=== PATIENT | male | born 1985 | race Caucasian/White ===

== ENCOUNTER 2017-08-20 13:28 | Inpatient (IN) | payer MEDICAID, OTHER ==
[~2017-08-20] VITALS: Ht 177.8 cm; Wt 77.8 kg
[~2017-08-20 13:28] MED LIST: LAMO100 PO; PALI3 PO
[2017-08-20 13:56] LABS: BASOPHILS # (AUTO) 0.02 K/uL (0.00-0.20); BASOPHILS % (AUTO) 0.4 % (0.0-2.0); EOSINOPHILS # (AUTO) 0.06 K/uL (0.00-0.70); EOSINOPHILS % (AUTO) 1.01 % (1.0-6.0); HEMOGLOBIN 15.6 g/dL (13.5-17.5); LYMPHOCYTES # (AUTO) 1.9 K/uL (1.0-4.8); LYMPHOCYTES % (AUTO) 31.4 % (22.0-44.0); MEAN CORPUSCULAR HEMOGLOBIN 32.8 pg (26.0-34.0); MEAN CORPUSCULAR HGB CONC 33.9 G/dL (31.0-37.0); MEAN CORPUSCULAR VOLUME 97 fL (80-100); MONOCYTES # (AUTO) 0.4 K/uL (0.1-1.0); MONOCYTES % (AUTO) 6.5 % (2.0-9.0); NEUTROPHILS # (AUTO) 3.7 K/uL (1.8-7.7); NEUTROPHILS % (AUTO) 60.7 % (40.0-70.0); PLATELET COUNT (AUTO) 274 K/uL (150-450); RED BLOOD CELL COUNT(AUTO) 4.76 MIL/uL (4.50-5.90); RED CELL DISTRIBUTION WIDTH 12.8 % (11.5-14.5); WHITE BLOOD COUNT (AUTO) 6.1 K/uL (4.5-11.0)
[2017-08-20 14:14] LABS: ANION GAP 11 mmol/L (8-16); CALCIUM, TOTAL 9.4 mg/dL (8.8-10.5); CARBON DIOXIDE 26 mmol/L (22-29); CHLORIDE 100 mmol/L (98-107); CREATININE 1.19 mg/dL (0.60-1.30); GLOMERULAR FILTR. RATE CALC > 60 mL/min (>60); POTASSIUM 3.8 mmol/L (3.5-5.1); SODIUM SERUM 137 mmol/L (136-145); UREA NITROGEN, BLOOD 15 mg/dL (7-18)
[2017-08-20 14:20] LABS: ALANINE AMINOTRANSFERASE 36 U/L (12-78); ALBUMIN 4.1 g/dL (3.4-5.0); ASPARTATE AMINOTRANSFERASE 24 U/L (15-37); TOTAL PROTEIN, SERUM 7.7 g/dL (6.4-8.2)
[2017-08-20] MEDS ORDERED: ZOLPIDEM TARTRATE 10 MG TABLET PO PRN (16:15)
[2017-08-20 17:00] VITALS: BP 122/66
[2017-08-20] MEDS ORDERED: ACETAMINOPHEN 325 MG TABLET PO ONE (18:30)
[2017-08-20] MEDS ORDERED: INFLUENZA VIRUS VACCINE QVS 2017-18 (3YR+)/PF 60 MCG/0.5 ML SYRINGE IM ONE (20:30)
[2017-08-21] MEDS: LORazepam 2 MG TABLET PO PRN ×2 (06:12→18:13)
[2017-08-21] MEDS: HALOPERIDOL 5 MG TABLET PO PRN (06:13)
[2017-08-21 07:20] LABS: CHOL/HDL RATIO 2.5 (4.2-7.3)
[2017-08-21 08:30] VITALS: BP 117/68
[2017-08-21] MEDS: BACITRACIN 28.4 GM OINTMENT TP SCH ×2 (09:00→18:07)
[2017-08-21] MEDS: NICOTINE 14 MG/24 HOUR PATCH TD SCH (09:00)
[2017-08-21] MEDS ORDERED: ONDANSETRON HCL 4 MG TABLET PO PRN (09:30)
[2017-08-21] MEDS ORDERED: CloNIDine HCL 0.1 MG TABLET PO PRN (09:30)
[2017-08-21] MEDS ORDERED: PETROLATUM,WHITE 71 GM JELLY TP PRN (09:30)
[2017-08-21] MEDS ORDERED: MAGNESIUM HYDROXIDE SUSPENSION 30 ML UDCUP PO PRN (09:30)
[2017-08-21] MEDS ORDERED: ALBUTEROL SULFATE HFA 90 MCG/PUFF 8 GM INHALER IH PRN (09:30)
[2017-08-21] MEDS ORDERED: IBUPROFEN 600 MG TABLET PO PRN (09:30)
[2017-08-21] MEDS ORDERED: BACITRACIN 28.4 GM OINTMENT TP PRN (09:30)
[2017-08-21] MEDS ORDERED: MAG HYDROX/AL HYDROX/SIMETH ES 30 ML SUSPENSION UDCUP PO PRN (09:30)
[2017-08-21] MEDS ORDERED: LOPERAMIDE HCL 2 MG CAPSULE PO PRN (09:30)
[2017-08-21] MEDS ORDERED: BENZOCAINE/MENTHOL LOZENGE MM PRN (09:30)
[2017-08-21] MEDS ORDERED: ACETAMINOPHEN 325 MG TABLET PO PRN (09:30)
[2017-08-21 17:00] VITALS: BP 113/53
[2017-08-21] MEDS: DIVALPROEX SODIUM 500 MG DR TABLET PO SCH ×2 (18:45→19:07)
[2017-08-21] MEDS: RisperiDONE 3 MG TABLET PO SCH ×2 (18:45→19:06)
[2017-08-21] MEDS: LITHIUM CARBONATE 300 MG CAPSULE PO SCH ×2 (18:45→19:07)
[2017-08-22] MEDS: LORazepam 2 MG TABLET PO PRN ×4 (00:05→20:33)
[2017-08-22 00:58] VITALS: BP 120/73
[2017-08-22] MEDS: DIVALPROEX SODIUM 500 MG DR TABLET PO SCH ×2 (09:00→17:00)
[2017-08-22] MEDS: BACITRACIN 28.4 GM OINTMENT TP SCH ×2 (09:00→17:00)
[2017-08-22] MEDS: RisperiDONE 3 MG TABLET PO SCH ×2 (09:00→17:00)
[2017-08-22] MEDS: LITHIUM CARBONATE 300 MG CAPSULE PO SCH ×2 (09:00→17:00)
[2017-08-22] MEDS: NICOTINE 14 MG/24 HOUR PATCH TD SCH (09:12)
[2017-08-22] MEDS: HALOPERIDOL 5 MG TABLET PO PRN (16:15)
[2017-08-22 17:50] VITALS: BP 114/78
[2017-08-23 01:15] VITALS: BP 111/79
[2017-08-23] MEDS: LORazepam 2 MG TABLET PO PRN ×4 (01:18→23:33)
[2017-08-23 03:10] VITALS: BP 111/79
[2017-08-23 08:05] VITALS: BP 112/66
[2017-08-23] MEDS: DIVALPROEX SODIUM 500 MG DR TABLET PO SCH ×2 (09:00→16:52)
[2017-08-23] MEDS: LITHIUM CARBONATE 300 MG CAPSULE PO SCH ×2 (09:00→16:52)
[2017-08-23] MEDS: BACITRACIN 28.4 GM OINTMENT TP SCH ×2 (09:00→16:52)
[2017-08-23] MEDS: RisperiDONE 3 MG TABLET PO SCH ×2 (09:00→16:52)
[2017-08-23] MEDS: NICOTINE 14 MG/24 HOUR PATCH TD SCH (10:03)
[2017-08-23 17:00] VITALS: BP 114/68
[2017-08-24 00:30] VITALS: BP 114/76
[2017-08-24] MEDS: LORazepam 2 MG TABLET PO PRN ×2 (03:58→20:18)
[2017-08-24] MEDS ORDERED: LORazepam 2 MG/ML VIAL IM ONE ×2 (06:45→10:45)
[2017-08-24] MEDS ORDERED: DiphenhydrAMINE HCL 50 MG/ML VIAL IM ONE ×2 (06:45→10:45)
[2017-08-24] MEDS ORDERED: HALOPERIDOL LACTATE 5 MG/ML VIAL IM ONE ×2 (06:45→10:45)
[2017-08-24 08:51] VITALS: BP 113/72
[2017-08-24] MEDS: NICOTINE 14 MG/24 HOUR PATCH TD SCH (09:00)
[2017-08-24] MEDS: LITHIUM CARBONATE 300 MG CAPSULE PO SCH ×2 (09:00→16:24)
[2017-08-24] MEDS: BACITRACIN 28.4 GM OINTMENT TP SCH ×2 (09:00→16:50)
[2017-08-24] MEDS: RisperiDONE 3 MG TABLET PO SCH ×2 (09:00→16:24)
[2017-08-24] MEDS: DIVALPROEX SODIUM 500 MG DR TABLET PO SCH ×2 (09:00→16:24)
[2017-08-24 20:21] VITALS: BP 112/61
[2017-08-25] MEDS: LITHIUM CARBONATE 300 MG CAPSULE PO SCH ×2 (08:10→16:48)
[2017-08-25 08:49] VITALS: BP 113/60
[2017-08-25] MEDS: BACITRACIN 28.4 GM OINTMENT TP SCH ×2 (09:00→16:48)
[2017-08-25] MEDS: LORazepam 2 MG TABLET PO PRN ×3 (09:15→18:34)
[2017-08-25] MEDS: NICOTINE 14 MG/24 HOUR PATCH TD SCH (09:18)
[2017-08-25] MEDS: DIVALPROEX SODIUM 500 MG DR TABLET PO SCH ×2 (09:19→16:48)
[2017-08-25] MEDS: RisperiDONE 3 MG TABLET PO SCH ×2 (09:19→16:48)
[2017-08-25 16:17] LABS: GLUCOSE,POINT OF CARE 153 MG/DL (70-110)
[2017-08-25 17:00] VITALS: BP 107/67
[2017-08-25 18:32] VITALS: BP 115/69
[2017-08-26] MEDS: LORazepam 2 MG TABLET PO PRN ×3 (04:51→16:18)
[2017-08-26 04:56] VITALS: BP 116/85
[2017-08-26] MEDS: RisperiDONE 3 MG TABLET PO SCH ×2 (08:13→16:18)
[2017-08-26] MEDS: LITHIUM CARBONATE 300 MG CAPSULE PO SCH ×2 (08:13→16:18)
[2017-08-26] MEDS: DIVALPROEX SODIUM 500 MG DR TABLET PO SCH ×2 (08:13→16:18)
[2017-08-26 08:29] VITALS: BP 117/69
[2017-08-26] MEDS: BACITRACIN 28.4 GM OINTMENT TP SCH ×2 (09:00→16:17)
[2017-08-26] MEDS: NICOTINE 14 MG/24 HOUR PATCH TD SCH (09:00)
[2017-08-26 16:00] VITALS: BP 113/61
[2017-08-26] MEDS ORDERED: BENZOCAINE/MENTHOL LOZENGE [8 LOZENGES/PACKET] MM PRN (16:15)
[2017-08-27 02:38] VITALS: BP 114/74
[2017-08-27] MEDS: LORazepam 2 MG TABLET PO PRN ×3 (02:42→12:34)
[2017-08-27 08:30] VITALS: BP 120/74
[2017-08-27] MEDS: DIVALPROEX SODIUM 500 MG DR TABLET PO SCH ×2 (08:31→16:27)
[2017-08-27] MEDS: LITHIUM CARBONATE 300 MG CAPSULE PO SCH ×2 (08:31→16:28)
[2017-08-27] MEDS: RisperiDONE 3 MG TABLET PO SCH ×2 (08:31→16:28)
[2017-08-27] MEDS: NICOTINE 14 MG/24 HOUR PATCH TD SCH (08:40)
[2017-08-27] MEDS: BACITRACIN 28.4 GM OINTMENT TP SCH ×2 (09:00→16:28)
[2017-08-27 16:15] VITALS: BP 98/61
[2017-08-27 16:47] LABS: GLUCOSE,POINT OF CARE 95 MG/DL (70-110)
[2017-08-28] MEDS: LORazepam 2 MG TABLET PO PRN ×3 (05:16→15:47)
[2017-08-28] MEDS: RisperiDONE 3 MG TABLET PO SCH ×2 (08:11→16:37)
[2017-08-28] MEDS: DIVALPROEX SODIUM 500 MG DR TABLET PO SCH ×2 (08:11→16:37)
[2017-08-28] MEDS: NICOTINE 14 MG/24 HOUR PATCH TD SCH (08:11)
[2017-08-28] MEDS: LITHIUM CARBONATE 300 MG CAPSULE PO SCH ×2 (08:11→16:37)
[2017-08-28] MEDS: BACITRACIN 28.4 GM OINTMENT TP SCH ×2 (09:00→16:37)
[2017-08-28 09:32] VITALS: BP 127/98
[2017-08-28 16:25] VITALS: BP 131/80
[2017-08-28] MEDS ORDERED: DIVA500T35 PO (16:36)
[2017-08-28] MEDS ORDERED: RISP3 PO (16:36)
[2017-08-28] MEDS ORDERED: LITH300C3 PO (16:37)
== END 2017-08-28 18:30 | disposition home or self-care (01) | DRG 750 ==
LOC: EMS 13:32 → 3EI 18:32 → 3EC 08-24 08:02
PROVIDERS: ADMIT Psychiatry & Neurology Psychiatry; ATTEND Psychiatry & Neurology Psychiatry
DX: F25.9 Schizoaffective disorder, unspecified (principal); F14.10 Cocaine abuse, uncomplicated; F17.200 Nicotine dependence, unspecified, uncomplicated; Z28.21 Immunization not carried out because of patient refusal; G47.00 Insomnia, unspecified; R45.4 Irritability and anger; Z71.6 Tobacco abuse counseling; Z71.51 Drug abuse counseling and surveillance of drug abuser; Z56.0 Unemployment, unspecified; Z79.899 Other long term (current) drug therapy; Z88.1 Allergy status to other antibiotic agents; Z88.0 Allergy status to penicillin
CPT/HCPCS: 82962; 99285; G0480; J1200; J1630; J2060

== ENCOUNTER 2017-09-12 09:48 | Inpatient (IN) | payer MEDICAID ==
[~2017-09-12] VITALS: Ht 177.8 cm; Wt 76.8 kg
[~2017-09-12 09:48] MED LIST changes: +DIVA500T35 PO; -LAMO100 PO; +LITH300C3 PO; -PALI3 PO; +RISP3 PO
[2017-09-12] MEDS ORDERED: OLAN2.5T3 PO (10:23)
[2017-09-12] MEDS ORDERED: LAMO100 PO (10:23)
[2017-09-12] MEDS ORDERED: CLON2 PO (10:23)
[2017-09-12 11:31] LABS: BASOPHILS % (AUTO) 0.4 % (0.0-2.0); EOSINOPHILS % (AUTO) 4.2 % (1.0-6.0); HEMATOCRIT 45.4 % (41-53); HEMOGLOBIN 15.8 g/dL (13.5-17.5); LYMPHOCYTES # (AUTO) 1.8 K/uL (1.0-4.8); LYMPHOCYTES % (AUTO) 29.4 % (22.0-44.0); MEAN CORPUSCULAR HEMOGLOBIN 33.4 pg (26.0-34.0); MEAN CORPUSCULAR HGB CONC 34.8 G/dL (31.0-37.0); MEAN CORPUSCULAR VOLUME 96 fL (80-100); MONOCYTES # (AUTO) 0.4 K/uL (0.1-1.0); NEUTROPHILS # (AUTO) 3.6 K/uL (1.8-7.7); PLATELET COUNT (AUTO) 358 K/uL (150-450); RED BLOOD CELL COUNT(AUTO) 4.72 MIL/uL (4.50-5.90); RED CELL DISTRIBUTION WIDTH 12.5 % (11.5-14.5)
[2017-09-12 11:42] LABS: AMPHET/METH SCREEN,URINE NEGATIVE (NEGATIVE); BARBITURATE SCREEN, URINE NEGATIVE (NEGATIVE); BENZODIAZEPINES SCREEN,URINE NEGATIVE (NEGATIVE); CANNABINOID SCREEN,URINE NEGATIVE (NEGATIVE); COCAINE SCREEN,URINE NEGATIVE (NEGATIVE); METHADONE SCREEN, URINE NEGATIVE (NEGATIVE); OPIATE SCREEN,URINE NEGATIVE (NEGATIVE)
[2017-09-12 11:44] LABS: ANION GAP 7 mmol/L (8-16); CALCIUM, TOTAL 9.1 mg/dL (8.8-10.5); CARBON DIOXIDE 31 mmol/L (22-29); CHLORIDE 103 mmol/L (98-107); CREATININE 1.24 mg/dL (0.60-1.30); GLOMERULAR FILTR. RATE CALC > 60 mL/min (>60); GLUCOSE,RANDOM 81 mg/dL (70-110); POTASSIUM 4.3 mmol/L (3.5-5.1); SODIUM SERUM 141 mmol/L (136-145); UREA NITROGEN, BLOOD 18 mg/dL (7-18)
[2017-09-12 11:48] LABS: PHENCYCLIDINE SCREEN,URINE NEGATIVE (NEGATIVE)
[2017-09-12 11:50] LABS: ALANINE AMINOTRANSFERASE 25 U/L (12-78); ALBUMIN 3.5 g/dL (3.4-5.0); ALKALINE PHOSPHATASE 65 U/L (46-116); ASPARTATE AMINOTRANSFERASE 16 U/L (15-37); BILIRUBIN,TOTAL 0.1 mg/dL (0.1-1.0); TOTAL PROTEIN, SERUM 7.5 g/dL (6.4-8.2)
[2017-09-12] MEDS ORDERED: ZOLPIDEM TARTRATE 10 MG TABLET PO PRN (13:30)
[2017-09-12] MEDS ORDERED: MAG HYDROX/AL HYDROX/SIMETH ES 30 ML SUSPENSION UDCUP PO PRN (16:30)
[2017-09-12] MEDS ORDERED: BACITRACIN 28.4 GM OINTMENT TP PRN (16:30)
[2017-09-12] MEDS ORDERED: IBUPROFEN 600 MG TABLET PO PRN (16:30)
[2017-09-12] MEDS ORDERED: ALBUTEROL SULFATE HFA 90 MCG/PUFF 8 GM INHALER IH PRN (16:30)
[2017-09-12] MEDS ORDERED: BENZOCAINE/MENTHOL LOZENGE MM PRN (16:30)
[2017-09-12] MEDS ORDERED: CloNIDine HCL 0.1 MG TABLET PO PRN (16:30)
[2017-09-12] MEDS ORDERED: ONDANSETRON HCL 4 MG TABLET PO PRN (16:30)
[2017-09-12] MEDS ORDERED: PETROLATUM,WHITE 71 GM JELLY TP PRN (16:30)
[2017-09-12] MEDS ORDERED: LOPERAMIDE HCL 2 MG CAPSULE PO PRN (16:30)
[2017-09-12] MEDS ORDERED: ACETAMINOPHEN 325 MG TABLET PO PRN (16:30)
[2017-09-12] MEDS ORDERED: MAGNESIUM HYDROXIDE SUSPENSION 30 ML UDCUP PO PRN (16:30)
[2017-09-12] MEDS: DIVALPROEX SODIUM 500 MG DR TABLET PO SCH (17:37)
[2017-09-12] MEDS: LITHIUM CARBONATE 300 MG CAPSULE PO SCH (17:37)
[2017-09-12] MEDS: RisperiDONE 3 MG TABLET PO SCH (17:37)
[2017-09-12 17:52] VITALS: BP 101/61
[2017-09-13] MEDS ORDERED: INFLUENZA VIRUS VACCINE QVS 2017-18 (3YR+)/PF 60 MCG/0.5 ML SYRINGE IM ONE (04:00)
[2017-09-13 09:00] VITALS: BP 122/65
[2017-09-13] MEDS: RisperiDONE 3 MG TABLET PO SCH ×2 (09:24→16:03)
[2017-09-13] MEDS: OMEPRAZOLE 20 MG CAPSULE PO SCH (09:24)
[2017-09-13] MEDS: DOCUSATE SODIUM 100 MG CAPSULE PO SCH (09:24)
[2017-09-13] MEDS: DIVALPROEX SODIUM 500 MG DR TABLET PO SCH ×2 (09:25→16:03)
[2017-09-13] MEDS: LITHIUM CARBONATE 300 MG CAPSULE PO SCH ×2 (09:25→16:03)
[2017-09-13] MEDS: LORazepam 2 MG TABLET PO PRN ×2 (10:17→15:58)
[2017-09-13 16:00] VITALS: BP 112/74
[2017-09-14 08:33] VITALS: BP 108/52
[2017-09-14 08:49] LABS: CHOL/HDL RATIO 3.4 (4.2-7.3); THYROID STIMULATING HORMONE 4.27 uIU/mL (0.36-3.74)
[2017-09-14] MEDS: RisperiDONE 3 MG TABLET PO SCH ×2 (09:00→16:13)
[2017-09-14] MEDS: DIVALPROEX SODIUM 500 MG DR TABLET PO SCH ×2 (09:00→16:13)
[2017-09-14] MEDS: DOCUSATE SODIUM 100 MG CAPSULE PO SCH (09:00)
[2017-09-14] MEDS: OMEPRAZOLE 20 MG CAPSULE PO SCH (09:00)
[2017-09-14] MEDS: LITHIUM CARBONATE 300 MG CAPSULE PO SCH ×2 (09:00→16:13)
[2017-09-14] MEDS: LORazepam 2 MG TABLET PO PRN ×3 (09:43→18:32)
[2017-09-14] MEDS: HALOPERIDOL 5 MG TABLET PO PRN ×2 (13:44→18:32)
[2017-09-14 17:20] VITALS: BP 110/77
[2017-09-15] MEDS: LORazepam 2 MG TABLET PO PRN ×5 (03:04→23:26)
[2017-09-15 08:00] VITALS: BP 129/73
[2017-09-15] MEDS: DIVALPROEX SODIUM 500 MG DR TABLET PO SCH ×2 (08:44→16:31)
[2017-09-15] MEDS: RisperiDONE 3 MG TABLET PO SCH ×2 (08:44→16:31)
[2017-09-15] MEDS: LITHIUM CARBONATE 300 MG CAPSULE PO SCH ×2 (08:44→16:31)
[2017-09-15] MEDS: OMEPRAZOLE 20 MG CAPSULE PO SCH (08:44)
[2017-09-15] MEDS: DOCUSATE SODIUM 100 MG CAPSULE PO SCH (08:44)
[2017-09-15] MEDS: HALOPERIDOL 5 MG TABLET PO PRN ×2 (11:45→17:15)
[2017-09-15 16:08] VITALS: BP 118/71
[2017-09-16 00:01] VITALS: BP 103/71
[2017-09-16] MEDS: LORazepam 2 MG TABLET PO PRN ×2 (04:27→08:32)
[2017-09-16 08:08] VITALS: BP 109/68
[2017-09-16] MEDS: OMEPRAZOLE 20 MG CAPSULE PO SCH (08:32)
[2017-09-16] MEDS: LITHIUM CARBONATE 300 MG CAPSULE PO SCH (08:32)
[2017-09-16] MEDS: DIVALPROEX SODIUM 500 MG DR TABLET PO SCH (08:32)
[2017-09-16] MEDS: RisperiDONE 3 MG TABLET PO SCH (08:32)
[2017-09-16] MEDS: DOCUSATE SODIUM 100 MG CAPSULE PO SCH (08:32)
[2017-09-16] MEDS ORDERED: DIVA500T35 PO (09:28)
[2017-09-16] MEDS ORDERED: LITH300C3 PO (09:29)
[2017-09-16] MEDS ORDERED: RISP3 PO (09:30)
[2017-09-16] MEDS ORDERED: OMEP20 PO (09:34)
[2017-09-16] MEDS ORDERED: DSS100 PO (09:34)
== END 2017-09-16 14:15 | disposition home or self-care (01) | DRG 750 ==
LOC: EMS 09:50 → AHU 14:12 → 3EC 16:08
PROVIDERS: ADMIT Psychiatry & Neurology Psychiatry; ATTEND Psychiatry & Neurology Psychiatry
DX: F25.9 Schizoaffective disorder, unspecified (principal); F10.231 Alcohol dependence with withdrawal delirium; R45.851 Suicidal ideations; G40.909 Epilepsy, unspecified, not intractable, without status epilepticus; G47.00 Insomnia, unspecified; Z88.1 Allergy status to other antibiotic agents; F41.9 Anxiety disorder, unspecified; Z88.0 Allergy status to penicillin; Z22.322 Carrier or suspected carrier of Methicillin resistant Staphylococcus aureus; Z28.21 Immunization not carried out because of patient refusal
CPT/HCPCS: 82306; 84443; 87081; 99285; G0480

== ENCOUNTER 2020-09-11 01:20 | Emergency (ER) | payer MEDICAID, OTHER ==
[~2020-09-11] VITALS: Ht 177.8 cm; Wt 93.2 kg
[~2020-09-11 01:20] MED LIST changes: +DIVA-112 PO; -DIVA500T35 PO; +DSS100 PO; +OMEP20 PO; -RISP3 PO; +RISP3TAB35 PO
[2020-09-11 01:24] VITALS: BP 124/78
[2020-09-11] MEDS ORDERED: QUEtiapine FUMARATE 100 MG TABLET PO ONE (02:30)
== END 2020-09-11 03:18 | disposition home or self-care (01) ==
LOC: EMS 01:24
DX: F25.9 Schizoaffective disorder, unspecified (principal); F41.9 Anxiety disorder, unspecified; F32.9 Major depressive disorder, single episode, unspecified; F13.90 Sedative, hypnotic, or anxiolytic use, unspecified, uncomplicated
CPT/HCPCS: Z7502

== ENCOUNTER 2021-03-04 11:58 | Emergency (ER) | payer OTHER ==
[~2021-03-04] VITALS: Ht 177.8 cm; Wt 90.9 kg
[2021-03-04] MEDS ORDERED: LORazepam 1 MG TABLET PO ONE (15:15)
[2021-03-04 16:19] VITALS: BP 130/63
== END 2021-03-04 16:53 | disposition home or self-care (01) ==
LOC: EMS 12:00
DX: F69 Unspecified disorder of adult personality and behavior (principal); F41.9 Anxiety disorder, unspecified; F32.9 Major depressive disorder, single episode, unspecified; F20.9 Schizophrenia, unspecified; F14.90 Cocaine use, unspecified, uncomplicated; Z88.0 Allergy status to penicillin
CPT/HCPCS: 99284; Z7502; Z7610

== ENCOUNTER 2021-03-06 02:40 | Inpatient (IN) | payer MEDICAID, OTHER ==
[~2021-03-06] VITALS: Ht 177.8 cm; Wt 84.5 kg
[~2021-03-06 02:40] MED LIST changes: -DSS100 PO
[2021-03-06 03:15] LABS: ANION GAP 7 mmol/L (8-16); CALCIUM, TOTAL 8.6 mg/dL (8.8-10.5); CARBON DIOXIDE 28 mmol/L (22-29); CHLORIDE 104 mmol/L (98-107); CREATININE 1.34 mg/dL (0.60-1.30); GLOMERULAR FILTR. RATE CALC > 60 mL/min (>60); GLUCOSE,RANDOM 97 mg/dL (70-110); POTASSIUM 3.6 mmol/L (3.5-5.1); SODIUM SERUM 139 mmol/L (136-145); UREA NITROGEN, BLOOD 19 mg/dL (7-18)
[2021-03-06] MEDS ORDERED: ZOLPIDEM TARTRATE 10 MG TABLET PO PRN (03:15)
[2021-03-06] MEDS ORDERED: OLANZapine 5 MG RAPDIS TABLET PO PRN (03:15)
[2021-03-06 03:17] LABS: BASOPHILS % (AUTO) 0.9 % (0.0-2.0); EOSINOPHILS % (AUTO) 2.1 % (1.0-6.0); HEMATOCRIT 41.1 % (41-53); HEMOGLOBIN 13.8 g/dL (13.5-17.5); LYMPHOCYTES # (AUTO) 2.6 K/uL (1.0-4.8); LYMPHOCYTES % (AUTO) 31.3 % (22.0-44.0); MEAN CORPUSCULAR HEMOGLOBIN 31.8 pg (26.0-34.0); MEAN CORPUSCULAR HGB CONC 33.7 G/dL (31.0-37.0); MEAN CORPUSCULAR VOLUME 95 fL (80-100); MONOCYTES # (AUTO) 0.7 K/uL (0.1-1.0); MONOCYTES % (AUTO) 8.3 % (2.0-9.0); NEUTROPHILS # (AUTO) 4.7 K/uL (1.8-7.7); NEUTROPHILS % (AUTO) 57.4 % (40.0-70.0); PLATELET COUNT (AUTO) 277 K/uL (150-450); RED BLOOD CELL COUNT(AUTO) 4.35 MIL/uL (4.50-5.90); RED CELL DISTRIBUTION WIDTH 12.8 % (11.5-14.5)
[2021-03-06 03:22] LABS: ALKALINE PHOSPHATASE 71 U/L (46-116); BILIRUBIN,TOTAL 0.2 mg/dL (0.1-1.0)
[2021-03-06 03:23] LABS: ALANINE AMINOTRANSFERASE 40 U/L (12-78); ALBUMIN 3.6 g/dL (3.4-5.0); ASPARTATE AMINOTRANSFERASE 25 U/L (15-37); LITHIUM < 0.20 mmol/L (0.60-1.20); TOTAL PROTEIN, SERUM 6.9 g/dL (6.4-8.2); VALPROIC ACID < 3 mcg/mL (50-100)
[2021-03-06 04:15] LABS: COVID AG,FIA SOURCE NASOPHARYNGEAL
[2021-03-06 04:22] LABS: APPEARANCE,URINE CLEAR (CLEAR); BILIRUBIN,URINE NEGATIVE (NEGATIVE); GLUCOSE, URINE (UA) NEGATIVE (NEGATIVE); KETONES,URINE NEGATIVE (NEGATIVE); LEUKOCYTE ESTERASE ,URINE NEGATIVE (NEGATIVE); NITRATE,URINE NEGATIVE (NEGATIVE); OCCULT BLOOD,URINE NEGATIVE (NEGATIVE); PH,URINE 6.5 (5.0-8.0); PROTEIN,URINE NEGATIVE (NEGATIVE)
[2021-03-06 04:27] LABS: AMPHET/METH SCREEN,URINE NEGATIVE (NEGATIVE); BARBITURATE SCREEN, URINE NEGATIVE (NEGATIVE); BENZODIAZEPINES SCREEN,URINE POSITIVE (NEGATIVE); CANNABINOID SCREEN,URINE NEGATIVE (NEGATIVE); COCAINE SCREEN,URINE POSITIVE (NEGATIVE); METHADONE SCREEN, URINE NEGATIVE (NEGATIVE); OPIATE SCREEN,URINE NEGATIVE (NEGATIVE)
[2021-03-06 04:45] LABS: PHENCYCLIDINE SCREEN,URINE NEGATIVE (NEGATIVE)
[2021-03-06 06:35] VITALS: BP 112/67
[2021-03-06] MEDS ORDERED: LOPERAMIDE HCL 2 MG CAPSULE PO PRN (08:00)
[2021-03-06] MEDS ORDERED: PROMETHAZINE HCL 25 MG TABLET PO PRN (08:00)
[2021-03-06] MEDS ORDERED: HydrOXYzine PAMOATE 50 MG CAPSULE PO PRN (08:00)
[2021-03-06] MEDS ORDERED: TUBERCULIN, PURIFIED PROTEIN DERIVATIVE 5 TU/0.1 ML SYRINGE ID ONE (08:00)
[2021-03-06] MEDS ORDERED: MAGNESIUM HYDROXIDE SUSPENSION 30 ML UDCUP PO PRN (08:00)
[2021-03-06] MEDS ORDERED: GuaiFENesin/D-METHORPHAN [SUGAR-FREE] 200-20MG/10 ML SYRUP UDCUP PO PRN (08:00)
[2021-03-06] MEDS ORDERED: MAG HYDROX/AL HYDROX/SIMETH ES 30 ML SUSPENSION UDCUP PO PRN (08:00)
[2021-03-06 08:46] VITALS: BP 113/69
[2021-03-06] MEDS: OMEGA-3/DHA/EPA/FISH OIL 1,000 MG CAPSULE PO SCH (09:00)
[2021-03-06] MEDS: NALTREXONE HCL 50 MG TABLET PO SCH (09:00)
[2021-03-06] MEDS: OMEPRAZOLE 20 MG CAPSULE PO SCH (09:00)
[2021-03-06] MEDS: FOLIC ACID 1 MG TABLET PO SCH (09:00)
[2021-03-06] MEDS: MULTIVITAMINS WITH MINERALS, THERAPEUTIC TABLET PO SCH (09:00)
[2021-03-06] MEDS: DIVALPROEX SODIUM 500 MG ER TABLET PO SCH ×3 (09:00→17:00)
[2021-03-06] MEDS: THIAMINE 100 MG TABLET PO SCH ×2 (09:00→17:00)
[2021-03-06] MEDS: OLANZapine 5 MG RAPDIS TABLET PO SCH ×3 (09:00→17:00)
[2021-03-06] MEDS: GABAPENTIN 300 MG CAPSULE PO SCH ×3 (13:00→21:00)
[2021-03-06] MEDS: MELATONIN 5 MG TABLET PO SCH (21:00)
[2021-03-06] MEDS ORDERED: HALOPERIDOL LACTATE 5 MG/ML VIAL ONE (22:22)
[2021-03-06] MEDS ORDERED: DiphenhydrAMINE HCL 50 MG/ML VIAL ONE (22:22)
[2021-03-06] MEDS ORDERED: LORazepam 2 MG/ML VIAL ONE (22:22)
[2021-03-06] MEDS ORDERED: LORazepam 2 MG/ML VIAL IM ONE (22:30)
[2021-03-06] MEDS ORDERED: HALOPERIDOL LACTATE 5 MG/ML VIAL IM ONE (22:30)
[2021-03-06] MEDS ORDERED: DiphenhydrAMINE HCL 50 MG/ML VIAL IM ONE (22:30)
[2021-03-07 08:00] VITALS: BP 119/76
[2021-03-07] MEDS: THIAMINE 100 MG TABLET PO SCH ×2 (09:00→17:00)
[2021-03-07] MEDS: OMEGA-3/DHA/EPA/FISH OIL 1,000 MG CAPSULE PO SCH (09:00)
[2021-03-07] MEDS: FOLIC ACID 1 MG TABLET PO SCH (09:00)
[2021-03-07] MEDS: DIVALPROEX SODIUM 500 MG ER TABLET PO SCH ×3 (09:00→17:00)
[2021-03-07] MEDS: NALTREXONE HCL 50 MG TABLET PO SCH (09:00)
[2021-03-07] MEDS: OMEPRAZOLE 20 MG CAPSULE PO SCH (09:00)
[2021-03-07] MEDS: OLANZapine 5 MG RAPDIS TABLET PO SCH ×3 (09:00→17:00)
[2021-03-07] MEDS: GABAPENTIN 300 MG CAPSULE PO SCH ×4 (09:00→20:14)
[2021-03-07] MEDS: MULTIVITAMINS WITH MINERALS, THERAPEUTIC TABLET PO SCH (09:00)
[2021-03-07 16:15] VITALS: BP 129/79
[2021-03-07] MEDS: LORazepam 2 MG TABLET PO PRN (17:06)
[2021-03-07] MEDS ORDERED: PALIPERIDONE PALMITATE 234 MG/1.5 ML SYRINGE IM ONE (20:00)
[2021-03-07] MEDS: MELATONIN 5 MG TABLET PO SCH (20:14)
[2021-03-08] MEDS: THIAMINE 100 MG TABLET PO SCH ×2 (09:00→16:14)
[2021-03-08] MEDS: MULTIVITAMINS WITH MINERALS, THERAPEUTIC TABLET PO SCH (09:00)
[2021-03-08] MEDS: FOLIC ACID 1 MG TABLET PO SCH (09:00)
[2021-03-08] MEDS: NALTREXONE HCL 50 MG TABLET PO SCH (09:00)
[2021-03-08] MEDS: OMEPRAZOLE 20 MG CAPSULE PO SCH (09:00)
[2021-03-08] MEDS: OMEGA-3/DHA/EPA/FISH OIL 1,000 MG CAPSULE PO SCH (09:00)
[2021-03-08] MEDS: OLANZapine 5 MG RAPDIS TABLET PO SCH ×3 (09:00→16:14)
[2021-03-08] MEDS: DIVALPROEX SODIUM 500 MG ER TABLET PO SCH ×3 (09:00→16:14)
[2021-03-08] MEDS: GABAPENTIN 300 MG CAPSULE PO SCH ×4 (09:00→21:00)
[2021-03-08] MEDS: LORazepam 2 MG TABLET PO PRN (16:00)
[2021-03-08 16:08] VITALS: BP 130/72
[2021-03-08 16:09] VITALS: BP 130/72
[2021-03-08] MEDS: ACETAMINOPHEN 325 MG TABLET PO PRN (18:38)
[2021-03-08] MEDS: MELATONIN 5 MG TABLET PO SCH (21:00)
[2021-03-09 08:00] VITALS: BP 138/74
[2021-03-09] MEDS: DIVALPROEX SODIUM 500 MG ER TABLET PO SCH ×3 (08:43→16:37)
[2021-03-09] MEDS: FOLIC ACID 1 MG TABLET PO SCH (08:43)
[2021-03-09] MEDS: GABAPENTIN 300 MG CAPSULE PO SCH ×4 (08:43→20:41)
[2021-03-09] MEDS: NALTREXONE HCL 50 MG TABLET PO SCH (08:43)
[2021-03-09] MEDS: OMEGA-3/DHA/EPA/FISH OIL 1,000 MG CAPSULE PO SCH (08:43)
[2021-03-09] MEDS: OMEPRAZOLE 20 MG CAPSULE PO SCH (08:43)
[2021-03-09] MEDS: THIAMINE 100 MG TABLET PO SCH ×2 (08:44→16:37)
[2021-03-09] MEDS: OLANZapine 5 MG RAPDIS TABLET PO SCH ×3 (08:44→16:37)
[2021-03-09] MEDS: MULTIVITAMINS WITH MINERALS, THERAPEUTIC TABLET PO SCH (08:44)
[2021-03-09] MEDS: LORazepam 2 MG TABLET PO PRN (14:17)
[2021-03-09 16:52] VITALS: BP 132/82
[2021-03-09] MEDS ORDERED: ARIPiprazole 5 MG TABLET PO PRN (19:00)
[2021-03-09] MEDS ORDERED: ARIPiprazole ER SUSPENSION 400 MG VIAL IM ONE (19:00)
[2021-03-09] MEDS: HydrOXYzine HCL 10 MG TABLET PO SCH (20:02)
[2021-03-09] MEDS: MELATONIN 5 MG TABLET PO SCH (20:41)
[2021-03-09] MEDS: ARIPiprazole 15 MG TABLET PO SCH (20:41)
[2021-03-10] MEDS: OMEGA-3/DHA/EPA/FISH OIL 1,000 MG CAPSULE PO SCH (08:11)
[2021-03-10] MEDS: HydrOXYzine HCL 10 MG TABLET PO SCH ×4 (08:11→20:03)
[2021-03-10] MEDS: DIVALPROEX SODIUM 500 MG ER TABLET PO SCH ×3 (08:11→16:24)
[2021-03-10] MEDS: GABAPENTIN 300 MG CAPSULE PO SCH ×4 (08:12→20:02)
[2021-03-10] MEDS: THIAMINE 100 MG TABLET PO SCH ×2 (08:12→16:24)
[2021-03-10] MEDS: FOLIC ACID 1 MG TABLET PO SCH (08:12)
[2021-03-10] MEDS: NALTREXONE HCL 50 MG TABLET PO SCH (08:12)
[2021-03-10] MEDS: MULTIVITAMINS WITH MINERALS, THERAPEUTIC TABLET PO SCH (08:12)
[2021-03-10] MEDS: OMEPRAZOLE 20 MG CAPSULE PO SCH (08:12)
[2021-03-10] MEDS: ACETAMINOPHEN 325 MG TABLET PO PRN (15:32)
[2021-03-10 16:21] VITALS: BP 131/78
[2021-03-10] MEDS: LORazepam 2 MG TABLET PO PRN (16:22)
[2021-03-10] MEDS: ARIPiprazole 15 MG TABLET PO SCH (20:02)
[2021-03-10] MEDS: MELATONIN 5 MG TABLET PO SCH (20:02)
[2021-03-11] MEDS: ACETAMINOPHEN 325 MG TABLET PO PRN ×2 (05:07→10:57)
[2021-03-11] MEDS: OMEGA-3/DHA/EPA/FISH OIL 1,000 MG CAPSULE PO SCH (09:00)
[2021-03-11] MEDS: MULTIVITAMINS WITH MINERALS, THERAPEUTIC TABLET PO SCH (09:00)
[2021-03-11] MEDS: HydrOXYzine HCL 10 MG TABLET PO SCH ×4 (09:00→20:07)
[2021-03-11] MEDS: THIAMINE 100 MG TABLET PO SCH ×2 (09:00→16:04)
[2021-03-11] MEDS: NALTREXONE HCL 50 MG TABLET PO SCH (09:00)
[2021-03-11] MEDS ORDERED: PALIPERIDONE PALMITATE 156 MG/ML SYRINGE IM ONE (09:00)
[2021-03-11] MEDS: FOLIC ACID 1 MG TABLET PO SCH (09:00)
[2021-03-11] MEDS: DIVALPROEX SODIUM 500 MG ER TABLET PO SCH ×3 (09:00→16:04)
[2021-03-11] MEDS: GABAPENTIN 300 MG CAPSULE PO SCH ×4 (09:00→20:08)
[2021-03-11] MEDS: OMEPRAZOLE 20 MG CAPSULE PO SCH (09:00)
[2021-03-11] MEDS: LORazepam 2 MG TABLET PO PRN ×2 (12:11→19:33)
[2021-03-11] MEDS: IBUPROFEN 600 MG TABLET PO PRN (16:19)
[2021-03-11 16:20] VITALS: BP 111/69
[2021-03-11] MEDS: ARIPiprazole 15 MG TABLET PO SCH (20:08)
[2021-03-11] MEDS: MELATONIN 5 MG TABLET PO SCH (20:08)
[2021-03-12 08:33] VITALS: BP 107/74
[2021-03-12] MEDS: FOLIC ACID 1 MG TABLET PO SCH (09:00)
[2021-03-12] MEDS: NALTREXONE HCL 50 MG TABLET PO SCH (09:00)
[2021-03-12] MEDS: MULTIVITAMINS WITH MINERALS, THERAPEUTIC TABLET PO SCH (09:00)
[2021-03-12] MEDS: HydrOXYzine HCL 10 MG TABLET PO SCH ×4 (09:00→20:00)
[2021-03-12] MEDS: THIAMINE 100 MG TABLET PO SCH ×2 (09:00→16:40)
[2021-03-12] MEDS: OMEGA-3/DHA/EPA/FISH OIL 1,000 MG CAPSULE PO SCH (09:00)
[2021-03-12] MEDS: OMEPRAZOLE 20 MG CAPSULE PO SCH (09:00)
[2021-03-12] MEDS: GABAPENTIN 300 MG CAPSULE PO SCH ×4 (09:00→20:01)
[2021-03-12] MEDS: DIVALPROEX SODIUM 500 MG ER TABLET PO SCH ×3 (09:00→16:40)
[2021-03-12] MEDS: IBUPROFEN 600 MG TABLET PO PRN (10:10)
[2021-03-12] MEDS: LORazepam 2 MG TABLET PO PRN ×2 (12:40→19:32)
[2021-03-12 16:23] VITALS: BP 104/72
[2021-03-12] MEDS: ARIPiprazole 15 MG TABLET PO SCH (20:01)
[2021-03-12] MEDS: MELATONIN 5 MG TABLET PO SCH (20:01)
[2021-03-13 08:29] VITALS: BP 105/76
[2021-03-13] MEDS: FOLIC ACID 1 MG TABLET PO SCH (08:54)
[2021-03-13] MEDS: OMEPRAZOLE 20 MG CAPSULE PO SCH (08:54)
[2021-03-13] MEDS: MULTIVITAMINS WITH MINERALS, THERAPEUTIC TABLET PO SCH (08:54)
[2021-03-13] MEDS: GABAPENTIN 300 MG CAPSULE PO SCH ×2 (08:54→12:40)
[2021-03-13] MEDS: DIVALPROEX SODIUM 500 MG ER TABLET PO SCH ×2 (08:54→12:40)
[2021-03-13] MEDS: OMEGA-3/DHA/EPA/FISH OIL 1,000 MG CAPSULE PO SCH (08:54)
[2021-03-13] MEDS: HydrOXYzine HCL 10 MG TABLET PO SCH ×2 (08:54→12:40)
[2021-03-13] MEDS: NALTREXONE HCL 50 MG TABLET PO SCH (08:54)
[2021-03-13] MEDS: THIAMINE 100 MG TABLET PO SCH (08:54)
[2021-03-13] MEDS: LORazepam 2 MG TABLET PO PRN (10:27)
[2021-03-13] MEDS ORDERED: ARIP15TA27 PO (13:03)
[2021-03-13] MEDS ORDERED: OMEG-135 PO (13:03)
[2021-03-13] MEDS ORDERED: GABA-1181 PO (13:03)
[2021-03-13] MEDS ORDERED: DIVA-80 PO (13:03)
[2021-03-13] MEDS ORDERED: ARIP400S IM (13:03)
[2021-03-13] MEDS ORDERED: HYDR-3831 PO (13:03)
[2021-03-13] MEDS ORDERED: NALT50TA PO (13:03)
[2021-03-13] MEDS ORDERED: MELA5TAB3 PO (13:03)
[2021-04-06] MEDS ORDERED: ARIPiprazole ER SUSPENSION 400 MG VIAL IM SCH (09:00)
== END 2021-03-13 15:00 | disposition home or self-care (01) | DRG 750 ==
LOC: EMS 02:42 → 3EI 05:15 → 3EC 22:34
PROVIDERS: ADMIT Psychiatry & Neurology Psychiatry; ATTEND Psychiatry & Neurology Psychiatry
DX: F20.0 Paranoid schizophrenia (principal); R45.851 Suicidal ideations; Z91.14 Patient's other noncompliance with medication regimen; E03.8 Other specified hypothyroidism; K21.9 Gastro-esophageal reflux disease without esophagitis; N18.9 Chronic kidney disease, unspecified; Z20.822 Contact with and (suspected) exposure to COVID-19; F12.10 Cannabis abuse, uncomplicated; F32.9 Major depressive disorder, single episode, unspecified; F41.9 Anxiety disorder, unspecified; Z91.19 Patient's noncompliance with other medical treatment and regimen; Z88.0 Allergy status to penicillin; Z88.1 Allergy status to other antibiotic agents; Z79.899 Other long term (current) drug therapy
CPT/HCPCS: 80053; 80164; 80178; 81003; 85025; 87081; 99285; A9575; G0480; J0401; J1200; J1630; J2060

== ENCOUNTER 2021-05-14 07:51 | Emergency (ER) | payer MEDICAID, OTHER ==
[~2021-05-14 07:51] MED LIST changes: +ARIP15TA27 PO; +ARIP400S IM; -DIVA-112 PO; +DIVA-80 PO; +GABA-1181 PO; +HYDR-3831 PO; -LITH300C3 PO; +MELA5TAB40 PO; +NALT50TA PO; +OMEG-135 PO; -OMEP20 PO; -RISP3TAB35 PO
== END 2021-05-14 14:49 | disposition left against medical advice (07) ==
LOC: EMS 07:52
DX: R45.851 Suicidal ideations (principal); Z53.21 Procedure and treatment not carried out due to patient leaving prior to being seen by health care provider

== ENCOUNTER 2021-05-14 11:27 | Emergency (ER) | payer OTHER ==
[~2021-05-14] VITALS: Ht 177.8 cm; Wt 81.8 kg
[2021-05-14 12:26] LABS: BASOPHILS % (AUTO) 0.6 % (0.0-2.0); EOSINOPHILS % (AUTO) 1.8 % (1.0-6.0); HEMATOCRIT 41.9 % (41-53); HEMOGLOBIN 14.2 g/dL (13.5-17.5); LYMPHOCYTES # (AUTO) 1.3 K/uL (1.0-4.8); LYMPHOCYTES % (AUTO) 25.8 % (22.0-44.0); MEAN CORPUSCULAR HEMOGLOBIN 32.2 pg (26.0-34.0); MEAN CORPUSCULAR HGB CONC 33.9 G/dL (31.0-37.0); MEAN CORPUSCULAR VOLUME 95 fL (80-100); MONOCYTES # (AUTO) 0.5 K/uL (0.1-1.0); MONOCYTES % (AUTO) 8.7 % (2.0-9.0); NEUTROPHILS # (AUTO) 3.3 K/uL (1.8-7.7); NEUTROPHILS % (AUTO) 63.1 % (40.0-70.0); PLATELET COUNT (AUTO) 277 K/uL (150-450); RED CELL DISTRIBUTION WIDTH 12.9 % (11.5-14.5)
[2021-05-14 12:37] LABS: ANION GAP 7 mmol/L (8-16); CALCIUM, TOTAL 8.2 mg/dL (8.8-10.5); CARBON DIOXIDE 29 mmol/L (22-29); CHLORIDE 107 mmol/L (98-107); CREATININE 0.94 mg/dL (0.60-1.30); GLOMERULAR FILTR. RATE CALC > 60 mL/min (>60); GLUCOSE,RANDOM 87 mg/dL (70-110); POTASSIUM 3.9 mmol/L (3.5-5.1); SODIUM SERUM 143 mmol/L (136-145); UREA NITROGEN, BLOOD 13 mg/dL (7-18)
[2021-05-14 12:43] LABS: ALANINE AMINOTRANSFERASE 49 U/L (12-78); ALBUMIN 3.3 g/dL (3.4-5.0); ALKALINE PHOSPHATASE 59 U/L (46-116); ASPARTATE AMINOTRANSFERASE 27 U/L (15-37); BILIRUBIN,TOTAL 0.3 mg/dL (0.1-1.0); TOTAL PROTEIN, SERUM 6.4 g/dL (6.4-8.2)
[2021-05-14 12:44] LABS: VALPROIC ACID < 3 mcg/mL (50-100)
[2021-05-14] MEDS ORDERED: LORazepam 1 MG TABLET PO ONE (12:45)
[2021-05-14] MEDS ORDERED: HALOPERIDOL 5 MG TABLET PO ONE (12:45)
[2021-05-14 14:30] LABS: AMPHET/METH SCREEN,URINE NEGATIVE (NEGATIVE); BARBITURATE SCREEN, URINE NEGATIVE (NEGATIVE); BENZODIAZEPINES SCREEN,URINE NEGATIVE (NEGATIVE); CANNABINOID SCREEN,URINE NEGATIVE (NEGATIVE); COCAINE SCREEN,URINE NEGATIVE (NEGATIVE); METHADONE SCREEN, URINE NEGATIVE (NEGATIVE); OPIATE SCREEN,URINE NEGATIVE (NEGATIVE)
[2021-05-14 14:31] LABS: PHENCYCLIDINE SCREEN,URINE NEGATIVE (NEGATIVE)
[2021-05-14 18:20] VITALS: BP 125/71
== END 2021-05-14 18:20 | disposition home or self-care (01) ==
LOC: EMS 11:27
DX: F20.9 Schizophrenia, unspecified (principal); R45.851 Suicidal ideations; F41.9 Anxiety disorder, unspecified; F39 Unspecified mood [affective] disorder; F14.90 Cocaine use, unspecified, uncomplicated; Z88.0 Allergy status to penicillin
CPT/HCPCS: 36415; 80053; 80164; 80307; 85025; 99284; G0480

== ENCOUNTER 2021-05-18 20:59 | Emergency (ER) | payer MEDICAID, OTHER ==
[~2021-05-18] VITALS: Ht 175.3 cm; Wt 77.3 kg
[2021-05-18 21:45] LABS: BASOPHILS % (AUTO) 0.8 % (0.0-2.0); EOSINOPHILS % (AUTO) 3.1 % (1.0-6.0); HEMATOCRIT 43.2 % (41-53); HEMOGLOBIN 14.7 g/dL (13.5-17.5); LYMPHOCYTES # (AUTO) 2.3 K/uL (1.0-4.8); LYMPHOCYTES % (AUTO) 34.1 % (22.0-44.0); MEAN CORPUSCULAR HEMOGLOBIN 32.5 pg (26.0-34.0); MEAN CORPUSCULAR HGB CONC 33.9 G/dL (31.0-37.0); MEAN CORPUSCULAR VOLUME 96 fL (80-100); MONOCYTES # (AUTO) 0.6 K/uL (0.1-1.0); MONOCYTES % (AUTO) 8.5 % (2.0-9.0); NEUTROPHILS # (AUTO) 3.6 K/uL (1.8-7.7); NEUTROPHILS % (AUTO) 53.5 % (40.0-70.0); PLATELET COUNT (AUTO) 297 K/uL (150-450); RED BLOOD CELL COUNT(AUTO) 4.52 MIL/uL (4.50-5.90); RED CELL DISTRIBUTION WIDTH 13.4 % (11.5-14.5)
[2021-05-18 21:54] LABS: ANION GAP 5 mmol/L (8-16); CALCIUM, TOTAL 9.1 mg/dL (8.8-10.5); CARBON DIOXIDE 29 mmol/L (22-29); CHLORIDE 103 mmol/L (98-107); CREATININE 1.02 mg/dL (0.60-1.30); GLOMERULAR FILTR. RATE CALC > 60 mL/min (>60); GLUCOSE,RANDOM 99 mg/dL (70-110); POTASSIUM 3.8 mmol/L (3.5-5.1); SODIUM SERUM 137 mmol/L (136-145); UREA NITROGEN, BLOOD 16 mg/dL (7-18)
[2021-05-18 22:00] LABS: ALANINE AMINOTRANSFERASE 40 U/L (12-78); ALBUMIN 3.5 g/dL (3.4-5.0); ALKALINE PHOSPHATASE 85 U/L (46-116); ASPARTATE AMINOTRANSFERASE 16 U/L (15-37); BILIRUBIN,TOTAL 0.2 mg/dL (0.1-1.0); TOTAL PROTEIN, SERUM 6.9 g/dL (6.4-8.2)
[2021-05-19] MEDS ORDERED: OLANZapine 5 MG TABLET PO ONE
[2021-05-19 00:18] LABS: COVID AG,FIA SOURCE NASOPHARYNGEAL
[2021-05-19 01:30] VITALS: BP 125/75
== END 2021-05-19 01:38 | disposition home or self-care (01) ==
LOC: EMS 21:02
DX: F20.9 Schizophrenia, unspecified (principal); F41.9 Anxiety disorder, unspecified; F32.9 Major depressive disorder, single episode, unspecified; F14.90 Cocaine use, unspecified, uncomplicated; Z20.822 Contact with and (suspected) exposure to COVID-19; Z88.0 Allergy status to penicillin
CPT/HCPCS: 36415; 80053; 85025; 87426; 99284; G0480; 99283

== ENCOUNTER 2021-05-30 20:21 | Inpatient (IN) | payer MEDICAID, OTHER ==
[~2021-05-30] VITALS: Ht 172.7 cm; Wt 79.2 kg
[2021-05-30] MEDS ORDERED: HALOPERIDOL LACTATE 5 MG/ML VIAL IM ONE (20:30)
[2021-05-30] MEDS ORDERED: DiphenhydrAMINE HCL 50 MG/ML VIAL IM ONE (20:30)
[2021-05-30] MEDS ORDERED: LORazepam 2 MG/ML VIAL IM ONE (20:30)
[2021-05-30 22:11] LABS: AMPHET/METH SCREEN,URINE NEGATIVE (NEGATIVE); BARBITURATE SCREEN, URINE NEGATIVE (NEGATIVE); BENZODIAZEPINES SCREEN,URINE NEGATIVE (NEGATIVE); CANNABINOID SCREEN,URINE NEGATIVE (NEGATIVE); COCAINE SCREEN,URINE NEGATIVE (NEGATIVE); METHADONE SCREEN, URINE NEGATIVE (NEGATIVE); OPIATE SCREEN,URINE NEGATIVE (NEGATIVE); PHENCYCLIDINE SCREEN,URINE NEGATIVE (NEGATIVE)
[2021-05-30] MEDS ORDERED: HALOPERIDOL 5 MG TABLET PO PRN (22:15)
[2021-05-30] MEDS ORDERED: ZOLPIDEM TARTRATE 10 MG TABLET PO PRN (22:15)
[2021-05-30 22:33] LABS: COVID AG,FIA SOURCE NASOPHARYNGEAL
[2021-05-31 03:31] LABS: BILIRUBIN,URINE NEGATIVE (NEGATIVE); GLUCOSE, URINE (UA) NEGATIVE (NEGATIVE); KETONES,URINE NEGATIVE (NEGATIVE); LEUKOCYTE ESTERASE ,URINE NEGATIVE (NEGATIVE); NITRATE,URINE NEGATIVE (NEGATIVE); OCCULT BLOOD,URINE NEGATIVE (NEGATIVE); PROTEIN,URINE NEGATIVE (NEGATIVE); UROBILINOGEN,URINE 0.2 mg/dL (<=1.0)
[2021-05-31 03:39] LABS: APPEARANCE,URINE CLEAR (CLEAR)
[2021-05-31] MEDS ORDERED: DOCUSATE SODIUM 100 MG CAPSULE PO PRN (09:45)
[2021-05-31] MEDS ORDERED: MAGNESIUM HYDROXIDE SUSPENSION 30 ML UDCUP PO PRN (09:45)
[2021-05-31] MEDS ORDERED: PETROLATUM,WHITE 28 GM JELLY TP PRN (09:45)
[2021-05-31] MEDS ORDERED: BENZOCAINE/MENTHOL LOZENGE PO PRN (09:45)
[2021-05-31] MEDS ORDERED: ALBUTEROL SULFATE HFA 90 MCG/PUFF 8 GM INHALER IH PRN (09:45)
[2021-05-31] MEDS ORDERED: ONDANSETRON HCL 4 MG TABLET PO PRN (09:45)
[2021-05-31] MEDS ORDERED: OMEPRAZOLE 20 MG CAPSULE PO PRN (09:45)
[2021-05-31] MEDS ORDERED: ACETAMINOPHEN 325 MG TABLET PO PRN (09:45)
[2021-05-31] MEDS ORDERED: IBUPROFEN 600 MG TABLET PO PRN (09:45)
[2021-05-31] MEDS ORDERED: LOPERAMIDE HCL 2 MG CAPSULE PO PRN (09:45)
[2021-05-31] MEDS ORDERED: MAG HYDROX/AL HYDROX/SIMETH ES 30 ML SUSPENSION UDCUP PO PRN (09:45)
[2021-05-31] MEDS ORDERED: BACITRACIN 28 GM OINTMENT TP PRN (09:45)
[2021-05-31] MEDS ORDERED: CloNIDine HCL 0.1 MG TABLET PO PRN (09:45)
[2021-05-31] MEDS: ARIPiprazole 15 MG TABLET PO SCH (13:30)
[2021-05-31] MEDS: DIVALPROEX SODIUM 500 MG DR TABLET PO SCH (16:11)
[2021-05-31 16:21] VITALS: BP 108/65
[2021-06-01 02:43] VITALS: BP 115/82
[2021-06-01] MEDS: LORazepam 2 MG TABLET PO PRN ×2 (02:50→19:20)
[2021-06-01 08:32] VITALS: BP 134/77
[2021-06-01] MEDS: OMEGA-3/DHA/EPA/FISH OIL 1,000 MG CAPSULE PO SCH (08:43)
[2021-06-01] MEDS: DIVALPROEX SODIUM 500 MG DR TABLET PO SCH ×2 (08:43→17:00)
[2021-06-01] MEDS: ARIPiprazole 15 MG TABLET PO SCH (08:43)
[2021-06-01 16:10] VITALS: BP 117/71
[2021-06-02 06:31] VITALS: BP 130/73
[2021-06-02] MEDS: OMEGA-3/DHA/EPA/FISH OIL 1,000 MG CAPSULE PO SCH (08:26)
[2021-06-02] MEDS: DIVALPROEX SODIUM 500 MG DR TABLET PO SCH ×2 (08:26→16:24)
[2021-06-02] MEDS: ARIPiprazole 15 MG TABLET PO SCH (08:26)
[2021-06-02 08:31] VITALS: BP 130/80
[2021-06-02] MEDS: LORazepam 2 MG TABLET PO PRN ×2 (13:55→20:18)
[2021-06-02 16:17] VITALS: BP 139/68
[2021-06-03 01:46] VITALS: BP 135/84
[2021-06-03] MEDS: OMEGA-3/DHA/EPA/FISH OIL 1,000 MG CAPSULE PO SCH (08:31)
[2021-06-03] MEDS: DIVALPROEX SODIUM 500 MG DR TABLET PO SCH ×2 (08:31→17:00)
[2021-06-03] MEDS: ARIPiprazole 15 MG TABLET PO SCH (08:31)
[2021-06-03 08:53] VITALS: BP 108/67
[2021-06-03] MEDS: LORazepam 2 MG TABLET PO PRN ×2 (11:55→16:17)
[2021-06-03 16:19] VITALS: BP 123/64
[2021-06-04 06:25] VITALS: BP 118/65
[2021-06-04 08:27] VITALS: BP 107/74
[2021-06-04] MEDS: DIVALPROEX SODIUM 500 MG DR TABLET PO SCH ×3 (08:27→16:50)
[2021-06-04] MEDS: ARIPiprazole 15 MG TABLET PO SCH ×2 (08:27→09:00)
[2021-06-04] MEDS: OMEGA-3/DHA/EPA/FISH OIL 1,000 MG CAPSULE PO SCH ×2 (08:27→09:00)
[2021-06-04 16:22] VITALS: BP 106/68
[2021-06-04] MEDS: LORazepam 2 MG TABLET PO PRN (16:58)
[2021-06-05 02:20] VITALS: BP 129/77
[2021-06-05 08:25] VITALS: BP 113/74
[2021-06-05] MEDS: LORazepam 2 MG TABLET PO PRN ×3 (08:51→18:24)
[2021-06-05] MEDS: DIVALPROEX SODIUM 500 MG DR TABLET PO SCH ×2 (09:00→17:00)
[2021-06-05] MEDS: ARIPiprazole 15 MG TABLET PO SCH (09:00)
[2021-06-05] MEDS: OMEGA-3/DHA/EPA/FISH OIL 1,000 MG CAPSULE PO SCH (09:00)
[2021-06-05 16:22] VITALS: BP 112/72
[2021-06-06 05:51] VITALS: BP 110/66
[2021-06-06 08:26] VITALS: BP 100/68
[2021-06-06] MEDS: OMEGA-3/DHA/EPA/FISH OIL 1,000 MG CAPSULE PO SCH (09:00)
[2021-06-06] MEDS: DIVALPROEX SODIUM 500 MG DR TABLET PO SCH ×2 (09:00→16:28)
[2021-06-06] MEDS: ARIPiprazole 15 MG TABLET PO SCH (09:00)
[2021-06-06 16:08] VITALS: BP 101/63
[2021-06-06] MEDS: LORazepam 2 MG TABLET PO PRN (18:07)
[2021-06-07 05:19] VITALS: BP 108/66
[2021-06-07 08:41] VITALS: BP 110/77
[2021-06-07] MEDS: DIVALPROEX SODIUM 500 MG DR TABLET PO SCH ×2 (08:46→17:00)
[2021-06-07] MEDS: ARIPiprazole 15 MG TABLET PO SCH (08:46)
[2021-06-07] MEDS: OMEGA-3/DHA/EPA/FISH OIL 1,000 MG CAPSULE PO SCH (08:47)
[2021-06-07] MEDS: LORazepam 2 MG TABLET PO PRN (10:11)
[2021-06-07 16:04] VITALS: BP 104/71
[2021-06-08 01:30] VITALS: BP 112/77
[2021-06-08] MEDS: OMEGA-3/DHA/EPA/FISH OIL 1,000 MG CAPSULE PO SCH (08:44)
[2021-06-08] MEDS: DIVALPROEX SODIUM 500 MG DR TABLET PO SCH ×2 (08:44→16:53)
[2021-06-08] MEDS: ARIPiprazole 15 MG TABLET PO SCH (08:44)
[2021-06-08 08:52] VITALS: BP 109/72
[2021-06-08] MEDS: LORazepam 2 MG TABLET PO PRN ×2 (13:05→20:21)
[2021-06-08 16:03] VITALS: BP 116/76
[2021-06-09 05:23] VITALS: BP 110/78
[2021-06-09] MEDS: LORazepam 2 MG TABLET PO PRN (08:28)
[2021-06-09] MEDS: ARIPiprazole 15 MG TABLET PO SCH (08:29)
[2021-06-09] MEDS: OMEGA-3/DHA/EPA/FISH OIL 1,000 MG CAPSULE PO SCH (08:29)
[2021-06-09] MEDS: DIVALPROEX SODIUM 500 MG DR TABLET PO SCH (08:29)
[2021-06-09 09:49] VITALS: BP 114/70
[2021-06-09] MEDS ORDERED: DIVA-112 PO (13:06)
[2021-06-09] MEDS ORDERED: ARIP15TA27 PO (13:06)
== END 2021-06-09 13:30 | disposition home or self-care (01) | DRG 750 ==
LOC: EMS 20:23 → B3A 05-31 08:11
PROVIDERS: ADMIT Psychiatry & Neurology Psychiatry; ATTEND Psychiatry & Neurology Psychiatry
DX: F20.0 Paranoid schizophrenia (principal); F17.210 Nicotine dependence, cigarettes, uncomplicated; F32.9 Major depressive disorder, single episode, unspecified; G47.00 Insomnia, unspecified; K59.00 Constipation, unspecified; Z20.822 Contact with and (suspected) exposure to COVID-19; Z79.899 Other long term (current) drug therapy; Z88.0 Allergy status to penicillin; Z88.8 Allergy status to other drugs, medicaments and biological substances
CPT/HCPCS: 81003; 99291; J1200; J1630; J2060

== ENCOUNTER 2021-06-11 08:02 | Emergency (ER) | payer MEDICAID, OTHER ==
[~2021-06-11] VITALS: Ht 172.7 cm; Wt 72.7 kg
[~2021-06-11 08:02] MED LIST changes: -ARIP400S IM; +DIVA-112 PO; -DIVA-80 PO; -GABA-1181 PO; -HYDR-3831 PO; -MELA5TAB40 PO; -NALT50TA PO; -OMEG-135 PO
[2021-06-11] MEDS ORDERED: ARIPiprazole 15 MG TABLET PO ONE (08:45)
[2021-06-11] MEDS ORDERED: DIVALPROEX SODIUM 250 MG DR TABLET PO ONE (08:45)
[2021-06-11 08:48] VITALS: BP 136/80
== END 2021-06-11 09:31 | disposition home or self-care (01) ==
LOC: EMS 08:02
DX: F20.9 Schizophrenia, unspecified (principal); F41.9 Anxiety disorder, unspecified; F32.9 Major depressive disorder, single episode, unspecified; F17.210 Nicotine dependence, cigarettes, uncomplicated; F14.90 Cocaine use, unspecified, uncomplicated
CPT/HCPCS: 99284; Z7502; Z7610

== ENCOUNTER 2021-06-30 07:09 | Emergency (ER) | payer OTHER ==
[~2021-06-30] VITALS: Ht 175.3 cm; Wt 79.2 kg
[2021-06-30 07:18] VITALS: BP 135/82
== END 2021-06-30 10:17 | disposition left against medical advice (07) ==
LOC: EMS 07:09
DX: F20.9 Schizophrenia, unspecified (principal); F41.9 Anxiety disorder, unspecified; F32.9 Major depressive disorder, single episode, unspecified; F17.210 Nicotine dependence, cigarettes, uncomplicated; F14.90 Cocaine use, unspecified, uncomplicated; Z88.0 Allergy status to penicillin
CPT/HCPCS: 99284

== ENCOUNTER 2021-07-21 17:33 | Emergency (ER) | payer OTHER ==
[~2021-07-21] VITALS: Ht 177.8 cm; Wt 81.8 kg
[2021-07-21 17:41] VITALS: BP 130/86
== END 2021-07-21 19:25 | disposition home or self-care (01) ==
LOC: EMS 17:35
DX: F20.0 Paranoid schizophrenia (principal); F17.210 Nicotine dependence, cigarettes, uncomplicated; F41.9 Anxiety disorder, unspecified
CPT/HCPCS: 99281; Z7502